=== PATIENT | male | born 1995 | race Caucasian/White ===

== ENCOUNTER 2025-03-23 19:50 | Emergency (ER) | payer OTHER, MEDICAID ==
[~2025-03-23] VITALS: Ht 177.8 cm; Wt 47.6 kg
[2025-03-23 19:53] VITALS: BP 132/65; PULSE 127; O2SAT 99
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
--- NOTE | 2025-03-23 20:31 | RADIOLOGY REPORT ---
CLINICAL INDICATION: Shoulder Pain RIGHT TECHNIQUE: Right DI SHOULDER, COMPLETE (MIN 2 VWS) Comparison: None FINDINGS/IMPRESSION: : No glenohumeral joint space dislocation. Subtle cortical irregularity at the inferior margin of the glenoid extending into the medial scapula. This may represent artifact versus subtle nondisplaced fracture. Clinical correlation advised.
[2025-03-23 20:47] VITALS: RESP 18
[2025-03-23] MEDS: ketorolac trometh 30MG/ML vial 30 MG/ML VIAL IM ONE (20:47)
[2025-03-23] MEDS: morphine 2 MG/ML inj. syringe IM ONE (20:48)
[2025-03-23 21:02] VITALS: TEMP 97.6
== END 2025-03-23 21:03 | disposition home or self-care (01) ==
LOC: ER 19:52
DX: M25.511 Pain in right shoulder (principal); V89.2XXA Person injured in unspecified motor-vehicle accident, traffic, initial encounter; Y93.89 Activity, other specified; Y92.89 Other specified places as the place of occurrence of the external cause; Y99.8 Other external cause status
CPT/HCPCS: 73030; 96372; 99284; J1885; J2270

== ENCOUNTER 2025-08-13 18:34 | Emergency (ER) | payer MEDICAID, OTHER ==
[~2025-08-13] VITALS: Ht 177.8 cm; Wt 65.7 kg
[2025-08-13 18:36] VITALS: BP 114/81; PULSE 112; RESP 18; TEMP 97.5; O2SAT 99
--- NOTE | 2025-08-13 18:52 | Physician Documentation ---
History of Present Illness ~ Chief Complaint: Rash Stated Complaint: HIVES Time Seen by MD: 18:51 HPI 30-year-old male, overall healthy, presenting with a rash He tells me that over the past week or so he has had a rash, on his trunk, and extremities. He states it is itchy. He has been taking Benadryl without any change or relief. Prior to the rash he did have a short period of congestion and cough, flu-like symptoms. No recent travel. No new exposures or soaps or lotions. No lesions on the hands or penis. No concern for STI. Medication Reconciliation Allergies: Coded Allergies: No Known Allergies (Unverified , 08/13/25) Review of Systems Constitutional: Denies: fever Integumentary: Reports: rash, itching Physical Exam Vital Signs: Temperature: 97.5, Heart Rate: 112, Respiratory Rate: 18, BP: 114/81, Pulse Oximetry: 99, Weight: 65.700 Physical Exam General: This is a thin and overall healthy-appearing young man, not in distress HEENT: Atraumatic, oropharynx is moist, no intraoral lesions Heart: Regular rate and rhythm, normal-appearing peripheral perfusion Lungs: normal work of breathing, normal oxygen saturation on room air Skin: The patient has a rash on his trunk and extremities. It is small raised red papules with some areas of excoriation. It is minimally blanching. There were no lesions on the palms. No intraoral lesions. No skin sloughing. No herald patch. Neuro: Alert and oriented Psychiatric: Calm and cooperative with exam Progress Results/Orders Results/Orders Completed Orders - CINDY TAPIA MD Dexamethasone 6mg Tablet (Dexamethasone (08/13/25 19:15) Triamcinolone Acet 40mg/Ml Inj (Kenalog- (08/13/25 19:15) Dexamethasone Tablet (Decadron Tablet) (08/13/25 19:20) Dexamethasone Tablet (Decadron Tablet) (08/13/25 19:20) Vital Signs 08/13/25 18:36 Temp 97.5 Pulse 112 Resp 18 B/P (MAP) 114/81 Pulse Ox 99 Medical Decision Making Additional information obtaine: N/A Findings na Differential Dx:Considerations: Include: AIDS/HIV, Atopic dermatitis, Candidiasis, Contact dermatitis, Drug reaction, Erythema multiforme, Herpes zoster, Molluscum contagiosum, Psoriaisis, Scabies, Varicella Additional Comment The patient presents with a rash. Per his history and exam, no dangerous drug exposures or other concerning history including risk of STI or syphilis. His rash appears most consistent with a contact dermatitis or other known dangerous rash. He is already on antihistamines. He will be given steroids and discharged with home care instructions. Departure Time of Disposition: 19:15 Disposition: 01 HOME / SELF CARE / HOMELESS Impression: Primary Impression: Allergic contact dermatitis Condition: Stable Discharge Instructions: Contact Dermatitis Referrals: NO PRIMARY CARE PROVIDER (PCP) Education Educated: Patient Educated regarding: diagnosis, treatment, need for follow up Signature Scribe Signature: na Attestation: CINDY Lucero MD Aug 13, 2025 18:51
[2025-08-13] MEDS: triamcinolone acetonide 40mg/ml inj IM ONE (19:34)
[2025-08-13] MEDS: DEXAMETHASONE 6 MG TABLET PO ONE (19:41)
== END 2025-08-13 19:45 | disposition home or self-care (01) ==
LOC: ER 18:35
DX: L23.9 Allergic contact dermatitis, unspecified cause (principal)
CPT/HCPCS: 96372; 99283; J3301; J8540